=== PATIENT | male | born 1960 | race Caucasian/White ===

== ENCOUNTER 2017-08-03 01:40 | Day surgery (SDC) | payer OTHER ==
[~2017-08-03] VITALS: Ht 188 cm; Wt 101.2 kg
[~2017-08-03 01:40] MED LIST: ALB17R INH; ALL-DPT PO; CALC500T42 PO; CETI-459 PO; DOC100 PO; DULERA INHALER IH; ERGO500025 PO; FISH OIL1 CAP PO; IBU600 PO; LEVO150T72 PO; LEVO175T37 PO; LEVO200T44 PO; MULT1CAP41 PO; PER PO; [UNRECOGNIZED DRUG - CODE] PO; [UNRECOGNIZED DRUG - OTHER] TP
[2017-08-03] MEDS ORDERED: PROPOFOL(*)1000 MG/100 ML VIAL 100 ML ONE (11:06)
[2017-08-03 11:32] VITALS: BP 146/100
[2017-08-03] MEDS ORDERED: LIDOCAINE/SOD BICARB 8.4% SYR ID ONE (12:00)
[2017-08-03] MEDS ORDERED: NORMOSOL R SOLN(*) 1000 ML BAG 1,000 ML IV PRN (12:05)
[2017-08-03 13:27] VITALS: BP 119/77
[2017-08-03 13:50] VITALS: BP 105/78
[2017-08-03 13:55] VITALS: BP 132/94
== END 2017-08-03 14:10 | disposition home or self-care (01) ==
LOC: OR 01:40
PROVIDERS: ATTEND Family Medicine
DX: Z12.11 Encounter for screening for malignant neoplasm of colon (principal); D12.5 Benign neoplasm of sigmoid colon; D12.3 Benign neoplasm of transverse colon
CPT/HCPCS: 00811; 45380; 45385; 88305; J2704

== ENCOUNTER 2018-11-18 16:48 | Observation (INO) | payer OTHER ==
[~2018-11-18] VITALS: Ht 188 cm; Wt 105.8 kg
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
[2018-11-18 17:14] LABS: PLATELET COUNT, AUTOMATED 229 K/uL (150-450)
[2018-11-18] MEDS ORDERED: IOPAMIDOL 76% 100 ML INFUS BTL 100 ML ONE (17:22)
[2018-11-18] MEDS ORDERED: NS(*) 0.9% 1000 ML BAG 1,000 ML IV ONE (17:35)
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
[2018-11-18] MEDS ORDERED: [UNRECOGNIZED DRUG - OTHER] IV SCH ×2 (18:30→20:00)
[2018-11-18] MEDS ORDERED: MULTIVITAMINS IV SCH ×2 (18:30→20:00)
[2018-11-18] MEDS ORDERED: THIAMINE HCL IV SCH ×2 (18:30→20:00)
[2018-11-18] MEDS ORDERED: LOSA-57 PO (18:31)
[2018-11-18] MEDS ORDERED: FLUT1BLS3 INH (18:31)
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
[2018-11-18 19:18] VITALS: BP 144/89
[2018-11-18] MEDS ORDERED: traMADol 50 MG TAB PO PRN (19:45)
[2018-11-18] MEDS ORDERED: NS(*) 0.9% 1000 ML BAG 1,000 ML IV PRN (19:45)
[2018-11-18] MEDS ORDERED: CALC-515 PO (19:52)
[2018-11-18] MEDS: KETOROLAC 15 MG/ML VIAL IVP SCH (20:04)
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
[2018-11-18 23:49] VITALS: BP 112/77
[2018-11-19] MEDS ORDERED: KETOROLAC 15 MG/ML VIAL IVP SCH
[2018-11-19] MEDS: KETOROLAC 15 MG/ML VIAL IVP SCH (01:18)
[2018-11-19 03:55] VITALS: BP 132/84
[2018-11-19 06:05] LABS: PLATELET COUNT, AUTOMATED 156 K/uL (150-450)
[2018-11-19 07:16] VITALS: BP 130/82
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
== END 2018-11-19 07:50 | disposition home or self-care (01) ==
LOC: ER 16:58 → MED 18:39 → INTOOBSV 18:39
PROVIDERS: ADMIT Surgery; ATTEND Surgery
DX: S22.41XA Multiple fractures of ribs, right side, initial encounter for closed fracture (principal); M25.532 Pain in left wrist; M25.531 Pain in right wrist; R79.89 Other specified abnormal findings of blood chemistry; M50.322 Other cervical disc degeneration at C5-C6 level
CPT/HCPCS: 36415; 70450; 71260; 72125; 73110; 80320; 85025; 85610; 85730; 96361; 96374; 99284; G0378; J1885; J3411; J3475; J7030; Q9967; 82040; 82247; 82310; 82374; 82435; 82565; 82947; 84075; 84132; 84155; 84295; 84450; 84460; 84520